=== PATIENT | female | born 1940 | race Caucasian/White ===

== ENCOUNTER → 2024-09-02 11:33 | Outpatient (REF) | payer MEDICARE, OTHER, SELFPAY ==
[2024-09-02 15:15] LABS: Hematocrit 37.2 % (37.0-47.0); Hemoglobin 11.9 g/dL (12.0-16.0); Mean Corpuscular Hgb 31.4 pg (27.0-31.0); Mean Corpuscular Volume 98.2 fL (81.0-99.0); Mean Platelet Volume 9.5 fL (7.4-10.4); Platelet Count 183 10^3/uL (130-400); Red Blood Cell Count 3.79 10^6/uL (4.20-5.40); Red Cell Dist. Width 14.2 % (11.5-14.5); White Blood Cell Count 6.1 10^3/uL (4.8-10.8)
== END ==
LOC: OLABN 11:33
PROVIDERS: ATTENDING PHYSICIAN Student in an Organized Health Care Education/Training Program
DX: I10 Essential (primary) hypertension (principal)
CPT/HCPCS: 36415; 85027

== ENCOUNTER → 2025-02-24 09:50 | Outpatient (REF) | payer MEDICARE, OTHER, SELFPAY ==
[2025-02-24 10:36] LABS: Hematocrit 39.5 % (37.0-47.0); Hemoglobin 12.9 g/dL (12.0-16.0); Mean Corp Hgb Conc. 32.7 g/dL (33.0-37.0); Mean Corpuscular Hgb 30.4 pg (27.0-31.0); Mean Corpuscular Volume 93.2 fL (81.0-99.0); Mean Platelet Volume 9.8 fL (7.4-10.4); Platelet Count 195 10^3/uL (130-400); Red Blood Cell Count 4.24 10^6/uL (4.20-5.40); Red Cell Dist. Width 13.8 % (11.5-14.5); White Blood Cell Count 5.2 10^3/uL (4.8-10.8)
== END ==
LOC: OLABN 09:50
PROVIDERS: ATTENDING PHYSICIAN Student in an Organized Health Care Education/Training Program
DX: I10 Essential (primary) hypertension (principal)
CPT/HCPCS: 36415; 85027

== ENCOUNTER 2025-03-07 21:41 | Inpatient (IN) | payer MEDICARE, OTHER, SELFPAY ==
[2025-03-07 19:08] VITALS: BP 109/61
--- NOTE | 2025-03-07 19:10 | ED.GENMED ---
History of Present Illness
General
Chief Complaint: Fall
Source: patient
Exam Limitations: none
Time Seen by Provider: 03/07/25 19:04
Nursing documentation reviewed up to this point in time: agreed with
History of Present Illness
History of Present Illness:
85-year-old female with a past medical history of dementia, hyperlipidemia, atrial fibrillation who presents to the emergency department from [facility] for evaluation of tachycardia, abnormal labs, vomiting. Patient is a very limited
historian due to her dementia and history is obtained from care home records as well as discussions with nursing of staff and EMS crew. Apparently patient was in her normal state of health this morning when she had an unwitnessed fall from
ground-level at about 7:10 AM. No apparent injuries send did not complain of any injuries after the fall but she was noted to be tachycardic by staff. No fever noted at this time. Throughout the day they monitored heart rate and her heart rate
was between 100 and 120. Staff noted that she was more lethargic than usual. She was sent for lab work due to her fall, elevated heart rate and lethargy. In the evening around 5:30 PM she had an episode of nonbloody emesis. She was noted to be
borderline febrile with a temp of 99.5 �F. She remained tachycardic and her stat lab work returned and was noted for a WBC of 20.1. She was referred to the ER to be assessed. She is on Eliquis per medication list.
Past History
Past History
ED Past Medical History: Other (Slight Dementia)
ED Past Surgical History: None
Social History
Tobacco: Non-smoker
Alcohol: None
Personal:
Living: care home
Review of Systems
Review of Systems
Unable to obtain full review of systems at this time due to: dementia
All Other Systems: Not applicable
Phy Exam
Physical Exam
Physical Exam:
General: Awake, alert, oriented x 1, nontoxic-appearing
Head: Normocephalic, atraumatic
Eyes: Conjunctiva normal, sclera anicteric
Throat: Airway intact, handling secretions, edentulous
Neck: Trachea midline, no cervical spine tenderness
Back: No signs of trauma to the back or flank and no tenderness in the thoracic or lumbar spine
Lungs: Clear to auscultation bilaterally, no wheezing, rales, rhonchi
Heart: Tachycardia with irregular rhythm, no murmurs, gallops, or rubs; no chest wall tenderness
Abd: Soft, non distended, nontender
Neuro: Grossly intact
Skin: no rash, no lacerations or abrasions
Extremities: Bilateral lower extremity edema; extremities are atraumatic and nontender, good pulses throughout
Scores
Heart Failure Risk
Heart Failure Risk Score: Not Applicable
Heart Score for Chest Pain Patients
STEMI patient?: Not applicable
Withdrawal Assessment of Alcohol
Withdrawal Assessment Completed?: Not applicable
Course
Orders/Labs/Results
Orders:
Orders
03/07/25 19:10
Electrocardiogram (*1) Urgent
Reason for Study: Tachycardia
EKG- Treatment ONCE
03/07/25 19:17
CT Head W/o Iv Contrast Urgent
Comment:
Reason For Exam: fall on ac--vomiting
03/07/25 19:25
COVID-19 Antigen Urgent
Source: Nasal Swab
Complete Blood Count/With Diff Urgent
Urinalysis Reflex To Culture Urgent
Date Specimen was Collected: 03/07/25
Time Specimen was Collected: 19:15
Urine Microscopic Reflex Cult Urgent
Influenza A+B Rapid Molecular Urgent
ROCIO Source: Nasal Swab
Specimen Description:
03/07/25 19:26
Comprehensive Metabolic Panel Urgent
Lipase Urgent
Troponin I Urgent
03/07/25 20:04
Electrocardiogram (*1) Urgent
Reason for Study: Fatigue / Weakness
EKG- Treatment ONCE
03/07/25 20:30
CR Chest Portable - 1 View Urgent
Comment:
Reason For Exam: tachypnea
Reason Study Needs to be Portable: Unable to Transport
Abnormal Lab Results
03/07/25 03/07/25
19:25 19:26
WBC 20.0 H 10^3/uL
(4.8-10.8)
Abs Immat Gran (auto) 0.1 H 10^3/uL
(0-0.05)
Absolute Neuts (auto) 17.7 H 10^3/uL
(1.4-6.5)
Immature Gran % 0.7 H %
(0-0.5)
Neutrophils % 88.3 H %
(42.2-75.2)
Lymphocytes % 6.8 L %
(20.5-51.1)
Sodium 134 L mmol/L
(135-145)
BUN 23 H mg/dl
(7-17)
Glucose 132 H mg/dl
(70-99)
Albumin 3.1 L g/dl
(3.5-5.0)
Urine Albumin (Reflex) 1+ A
(Neg - Trace)
03/07/25 19:25
03/07/25 19:26
Vital Signs
Initial and Last Documented VS:
Initial Vital Signs
Pulse Resp BP
115 16 109/61
03/07/25 19:08 03/07/25 19:08 03/07/25 19:08
Last Documented Vital Signs
Temp Pulse Resp BP Pulse Ox
37.2 C 114 28 109/61 95
03/07/25 19:12 03/07/25 19:30 03/07/25 19:30 03/07/25 19:12 03/07/25 19:30
MDM/Problems Addressed
Differential Diagnosis Includes:
Differential diagnosis for lethargy and tachycardia wide�UTI, viral syndrome, dehydration/electrolyte derangement, renal dysfunction, etc
MDM/Problems Addressed:
85-year-old female presents for evaluation of tachycardia, lethargy and vomiting. She had a minor fall this morning no apparent injuries but throughout the day has been lethargic, tachycardic, borderline fever and tonight had an episode of vomiting
which finally prompted ER referral. She did have lab work sent on an outpatient basis today which showed that she has a WBC of 20.1. Vital signs here were significant for tachycardia and; no fever. Physical exam as above�no apparent traumatic
injuries noted. Given her fall and vomiting on anticoagulation she should have CT head to rule out traumatic head injury although no external signs of trauma to the head. Will place an IV send labs including a CBC and a CMP, lipase. Check
cardiogram and troponin. Will check viral swabs. Will monitor very closely reassess after the above.
Labs reviewed: CBC does show leukocytosis to 20 and with her tachypnea and tachycardia added lactate and blood cultures. CMP no clinically significant abnormalities. Troponin negative. Urinalysis negative for infection. COVID and flu negative.
CT head negative for any acute pathology. EKG showed sinus tachycardia. Chest x-ray reviewed by me shows right upper lobe pneumonia. Will plan to cover with antibiotics, continue fluids, will admit for continued management. Discussed with
hospitalist.
Chronic conditions affecting care:
Dementia
*Pulse Oximetry
Patient hypoxic: no (97%)
*Critical Care Note
Total Time (30-74mins, 75-104mins- exclusive of procedures): Not Applicable
Data Reviewed
Review of Other/Old Records Reveals: Labs and Records
Source: patient, records, ambulance crew, care home and care home records
Patient Management
Discussion with other providers: Hospitalist (Discussed with hospitalist) and jail staff (Discussed directly with care home staff)
Escalation/DeEscalation of care consider admission/obs:
Admission indicated
ED Attending Note
-
Portions of this chart may have been created with voice recognition software.� Occasional wrong word or��sound alike� substitutions may have occurred due to the inherent limitations of voice recognition software.
Discharge Plan
Departure
Patient Disposition: Admit
Date of Disposition: 03/07/25
Time of Disposition: 21:01
Admit to doctor: Venancio
Presentation/result/management discussed w/ accepting MD/DO: Hospitalist
Discharge Problem:
Sepsis, Pneumonia
Prescriptions:
No Action
latanoprost [Xalatan] 0.005 % Drops
1 drp BOTH EYES HS
acetaminophen 325 mg Tablet
650 mg PO Q4H PRN (Reason: pain, fever >100.4 )
sucralfate 1 gram Tablet
1 g PO ACHS
ondansetron HCl [Zofran] 4 mg Tablet
4 mg PO Q6H PRN (Reason: nausea/vomiting)
bisacodyl 10 mg Suppository
10 mg AR Q72H PRN (Reason: 3 days when no BM and MOM and/or lactulose ineffec)
pantoprazole [Protonix] 40 mg Tablet,Delayed Release (Dr/Ec)
40 mg PO BID
dorzolamide-timolol 22.3-6.8 mg/mL Drops
1 drp BOTH EYES BID
metoprolol succinate [Toprol XL] 25 mg Tablet Extended Release 24 Hr
25 mg PO DAILY
polyethylene glycol 3350 [Miralax] 17 gram/dose Powder
17 g PO DAILY
fluticasone propionate [Flonase] 50 mcg/actuation [place],Suspension
1 spray INTRANASAL BID
Eliquis 2.5 mg Tablet
2.5 mg PO Q12H
magnesium hydroxide [Milk of Magnesia] 400 mg/5 mL Suspension
30 ml PO HS PRN (Reason: constipation)
cyanocobalamin (vitamin B-12) 1,000 mcg/mL Solution
1,000 mcg IM QMONTH
Rx Instructions:
04/06/2023, patient takes of the month
alum-mag hydroxide-simeth [Mylanta] 200-200-20 mg/5 mL Suspension
30 ml PO Q4H PRN (Reason: colitis)
diclofenac sodium [Voltaren] 1 % Gel
4 g TOPICAL DAILY
potassium chloride [Klor-Con M20] 20 mEq tablet,ER particles/crystals
20 meq PO DAILY 7 Days Qty: 7 0RF
Referrals:
UNKNOWN - PT DOES,NOT KNOW [Family Provider]
Interventions
Interventions:
*Risk Screen - Suicide Last Done: 03/07/25 19:12
*General Assessment Last Done: 03/07/25 19:12
*Neglect/Abuse Screening Last Done: 03/07/25 19:12
*ED- Fall Risk Assessment Last Done: 03/07/25 19:12
*ED COVID-19 Vaccine History Last Done: 03/07/25 19:12
ED-Musculoskeletal Assessment Last Done: 03/07/25 19:25
ED- Neurological Assessment Last Done: 03/07/25 19:25
ED-Skin Assessment Last Done: 03/07/25 19:25
Discharge Date and Time
Print Language: KENYAN
[2025-03-07 19:12] VITALS: BP 109/61
[2025-03-07 19:25] VITALS: BMI 22.7
[2025-03-07 19:40] LABS: Hematocrit 39.2 % (37.0-47.0); Hemoglobin 13.4 g/dL (12.0-16.0); Mean Corp Hgb Conc. 34.2 g/dL (33.0-37.0); Mean Corpuscular Volume 90.3 fL (81.0-99.0); Nucleated Red Blood Cells % 0 %; Platelet Count 157 10^3/uL (130-400); Red Cell Dist. Width 13.9 % (11.5-14.5); Urine Character Clear (Clear)
[2025-03-07 19:50] LABS: Urine Red Blood Cell None Seen /HPF (0-2)
[2025-03-07 19:56] LABS: COVID-19 Antigen Negative (Negative)
[2025-03-07 19:59] LABS: AST (SGOT) 28 U/L (14-36); Albumin 3.1 g/dl (3.5-5.0); Alkaline Phosphatase 65 U/L (38-126); Blood Urea Nitrogen 23 mg/dl (7-17); Calcium 8.7 mg/dl (8.4-10.2); Carbon Dioxide 25 mmol/L (22-30); Chloride 104 mmol/L (98-107); Estimated Creatinine Clearance 57 ml/min; Glucose 132 mg/dl (70-99); Lipase 63 U/L (23-300); Potassium 4.3 mmol/L (3.5-5.1); Sodium 134 mmol/L (135-145); Total Protein 6.3 g/dl (6.3-8.2); eGFR > 60.00
[2025-03-07 20:00] VITALS: BP 109/59
[2025-03-07 20:13] LABS: Troponin I 0.018 ng/ml
[2025-03-07 20:27] LABS: ALT (SGPT) < 30 U/L (0-35)
[2025-03-07 21:00] VITALS: BP 98/55
--- NOTE | 2025-03-07 21:08 | HPS.HSE ---
Addendum entered and electronically signed by Allen Gonzalez MD 03/08/25 12:24:
CXR final report
- There are opacities projecting over the right upper and lower lungs which likely represent multifocal pneumonia.
- There is a 7 mm nodular opacity projecting over the left upper lung, possibly a calcified granuloma. Recommend follow-up to ensure resolution.
Original Note:
Family Physician
-
Family Physician: NOT KNOW UNKNOWN - PT DOES
Chief Complaint
-
Fall and lethargic, low grade fever,
History of Present Illness
85[facility] H[facility] MCI vs mild dementia , hyperlipidemia, atrial fibrillation , chronic eliquis and BB sen at ER :
- very limited historian due to her dementia and history is obtained from care home records a
- Apparently patient was in her normal state of health
- this morning when she had an unwitnessed fall from ground-level at about 7:10 AM. No apparent injuries
- was noted to be tachycardic by staff.
- Throughout the day they monitored heart rate and her heart rate was between 100 and 120.
- Staff noted that she was more lethargic than usual.
- In the evening , she had an episode of nonbloody emesis.
- noted borderline febrile with a temp of 99.5 �F and remained tachycardic
- lab work returned and was noted for a WBC of 20.1.
She was referred to the ER to be assessed. She is on Eliquis per medication list.
Medical History
Past Medical History
Past Medical History: Reports None, Arrhythmia (Atria fibrillation on chr Eliquis ), Dementia (mild vs MCI ), GERD and HTN
Past Surgical History: Reports None
Social History
Tobacco: Non-smoker
Alcohol: None
Living: Long Term ([facility] )
Family History
Family History: Not pertinent
Allergies / Home Medications
Allergies reflects when Allergies were last updated in [facility].
Home Medications with original date entered in [facility]
Allergy/Medication List:
Allergies
Allergy/AdvReac Type Severity Reaction Status Date / Time
No Known Allergies Allergy Verified 03/07/25 19:11
Home Medications
acetaminophen 325 mg tablet 650 mg PO Q4H PRN pain, fever >100.4 10/03/22
apixaban 2.5 mg tablet (Eliquis) 2.5 mg PO Q12H 10/03/22
bisacodyl 10 mg rectal suppository [address] Q72H PRN 3 days when no BM and MOM and/or lactulose ineffec 10/03/22
dorzolamide 22.3 mg-timolol 6.8 mg/mL eye drops 1 drp BOTH EYES BID 10/03/22
fluticasone propionate 50 mcg/actuation nasal spray,suspension 1 spray intranasal BID 10/03/22
latanoprost 0.005 % eye drops (Xalatan) 1 drp BOTH EYES HS 10/03/22
metoprolol succinate 25 mg tablet,extended release 24 hr (Toprol XL) 25 mg PO DAILY 10/03/22
ondansetron HCl 4 mg tablet 4 mg PO Q6H PRN nausea/vomiting 10/03/22
pantoprazole 40 mg tablet,delayed release (Protonix) 40 mg PO BID 10/03/22
polyethylene glycol 3350 17 gram/dose oral powder (Miralax) 17 g PO DAILY 10/03/22
sucralfate 1 gram tablet 1 g PO ACHS 10/03/22
aluminum-mag hydroxide-simethicone 200 mg-200 mg-20 mg/5 mL oral susp 30 ml PO Q4H PRN colitis 04/06/23
cyanocobalamin (vitamin B-12) 1,000 mcg/mL injection solution 1,000 mcg IM QMONTH 04/06/23
diclofenac sodium 1 % topical gel 4 g topical DAILY apply to B/L knee 04/06/23
magnesium hydroxide 400 mg/5 mL oral suspension (Milk of Magnesia) 30 ml PO HS PRN constipation 04/06/23
potassium chloride 20 mEq tablet,extended release(part/cryst) (Klor-Con M) 20 meq PO DAILY 7 days #7 tabs 04/06/23
Review of Systems
-
Constitutional: Reports No Symptoms
EENT: Reports No Symptoms
Cardiac: Reports No Symptoms
Abdomen/GI: Reports No Symptoms
: Reports No Symptoms
Musculoskeletal: Reports No Symptoms
Skin: Reports No Symptoms
Neurological: Reports No Symptoms
Endocrine: Reports No Symptoms
Hematologic/Lymphatic: Reports No Symptoms
Psych: Reports No Symptoms
Physical Exam
Vital Signs
Vital Signs
Temp Pulse Resp BP Pulse Ox
99.0 F 114 28 109/61 95
03/07/25 19:12 03/07/25 19:30 03/07/25 19:30 03/07/25 19:12 03/07/25 19:30
Physical Exam
General: No Apparent Distress and Conversant (just interactive, slightly lethargic )
HEENT: NormoCephalic, Moist mucous membranes and Atraumatic
Respiratory: Clear
Cardiac: S1/S2, Irregular Rhythm and Tachycardia; No Murmur or Rub
GI: Soft, Non Tender, Non Distended and Normal Bowel Sounds; No Organomegaly
Rectal: Deferred by Provider
Musculoskeletal: No Clubbing, No Edema and Other (Bilateral lower extremity edema; extremities are atraumatic and nontender,)
Skin: No Rash
Neuro: Nonfocal/grossly intact
Psych: Calm, Confused and Apparent Dementia
Laboratory Results
-
03/07/25 19:25
03/07/25 19:26
Laboratory Results
Total Bilirubin 1.0 mg/dl (0.2-1.3) 03/07/25 19:26
AST 28 U/L (14-36) 03/07/25 19:26
ALT < 30 U/L (0-35) 03/07/25 19:26
Alkaline Phosphatase 65 U/L (38-126) 03/07/25 19:26
Troponin I 0.018 ng/ml 03/07/25 19:26
Lipase 63 U/L (23-300) 03/07/25 19:26
Data Reviewed
-
Diagnostic Radiology: Report Reviewed by me
Medical Tests (Nuc Med, Echo, EKG etc): Report Reviewed by me
Lab Data: Labs Reviewed by me
Impression/Plan
-
VS
03/07/25
19:12
Temp 99.0 F
Pulse 110
Resp Rate 28
Blood pressure 109/61
SaO2 92
Oxygen Mode of Delivery Room air
admission labs
03/07/25 03/07/25
19:26
WBC 20.0 H
Immature Gran % 0.7 H
Neutrophils % 88.3 H
Sodium 134 L
BUN 23 H
Creatinine 0.6
eGFR > 60.00
Glucose 132 H
Troponin I 0.018
Leukocyte Esterase Rfl Negative
Urine WBC (Reflex) 3-5
SARS-CoV-2 Antigen Negative
Pending LA
BCX sent
CXR: pending final report , prelim review right upper lobe pneumonia
HCT:
No evidence of acute intracranial abnormality
EKG
NO PRIOR hospitalist admission:
ASSESSMENT & PLAN
Pending Rx reconciliation
Sepsis 2/2 PNA
Prelim CXR read by ER suggest RUL PNA
- s/p septic NS bolus 1 and cont 100/H
- BCx sent
- Agree with empiric IV CFTX and AZitrhomycin
- f/u LA
- Trend T and WCC
- PRN O2 to keep Pox > 94
Associated hypoactive lethargic TME due to sepsis
Associated Fall without serious injuries
NEG HCT
HX Cognitive impairment ( Mild to moderate Dementia > MCI )
- Fall precaution
- avoid sedatives and narcotics
In A Fib with fast HR due to sepsis
- cont. Eliquis
- cont Metoprol XL
- Permissive VR during sepsis
- Treat PNA and f/u HR
- desk monitor
GERD
- on PPI and sucralfate
DVT Px: on DOCUMENT PREPARER MICROFILMING Eliquis
Full code
IP TLM
[2025-03-07 22:00] VITALS: BP 98/54
[2025-03-07] MEDS: NSS 1000 IV (22:17)
[2025-03-07] MEDS: ROCEPHIN 1000 MG IV (22:19)
[2025-03-07] MEDS: ZITHROMAX INFUSION 250 IV (22:25)
[2025-03-08] VITALS (8 sets, daily range): BP systolic 85–137; BP diastolic 39–84; PULSE 84; O2SAT 93; BMI 22.4
[2025-03-08] MEDS: ELIQUIS 2.5 MG PO ×3 (00:55→19:41)
[2025-03-08] MEDS: XALATAN OPHTHALMIC SOLUTION 1 DROP BOTH EYES ×2 (00:55→21:51)
[2025-03-08] MEDS: CARAFATE 1 GRAM PO ×5 (00:55→21:47)
[2025-03-08] MEDS: LR 1000 IV ×2 (00:55→11:42)
--- NOTE | 2025-03-08 07:16 | W.PN.HOSP.TC ---
Addendum entered and electronically signed by Norma Morales MD 03/08/25 14:30:
I saw and evaluated the patient independently. I reviewed the resident�s note and agree with findings and plan as documented by Dr. Gu.
GENERAL: well developed, well nourished, female in no apparent distress
HEENT: NC/AT
HEART: regular rate and rhythm, +S1, +S2
LUNGS : rhonchi anteriorly right side and posterior right base
ABDOM: soft, nontender, nondistended, + bowel sounds
EXT: no cyanosis, clubbing, or edema
NEUROLOGIC: apparent dementia
Sepsis (POA) likely secondary to pneumonia--Continue IV ceftriaxone and PO azithromycin---Continue IV Fluids (increase rate) as BP soft--flu/covid neg--await cultures
Lung Nodule--Patient should follow up with a chief librarian extension department in the outpatient setting for evaluation
Status post fall--CT Head without contrast negative for acute pathology--Ordered PT/OT
Dementia--Continue to follow up with PCP
paroxysmal Atrial Fibrillation--Continue Eliquis and metoprolol
Gastroesophageal Reflux Disease--Continue Pantoprazole
Constipation-Continue bowel regimen
DVT proph
CODE STATUS--full code
Original Note:
Today's Communication/Plan
-
Ordered PT and OT
Assessment / Plan
Assessment / Plan
Sepsis likely secondary to pneumonia
-Continue IV ceftriaxone and PO azithromycin
-Continue IV Fluids
-Pending blood cultures
-Added Tylenol PRN for pain or fevers
Lung Nodule
-Patient should follow up with a chief librarian extension department in the outpatient setting for evaluation
Status post fall
-CT Head without contrast negative for acute pathology
-Ordered PT/OT
Dementia
-Continue to follow up with PCP
Atrial Fibrillation
-Continue Eliquis and metoprolol
Gastroesophageal Reflux Disease
-Continue home meds (Mylanta, Pantoprazole)
Constipation
-Continue home meds (Milk of Magnesia, Miralax, Bisacodyl)
Anticipated Discharge: 24 - 48 hours
Subjective/Interval History
-
Date of Service: March 08, 2025
Patient was doing well today. She was eating breakfast and had no complaints. She states she was doing very well, and was interested in going home. Her daughter was not present in the room during this time.
Objective Data
-
Labs:
Laboratory Results
03/07/25 03/07/25 03/08/25
19:25 19:26 06:00
WBC 20.0 H Pending
Hgb 13.4 Pending
Hct 39.2 Pending
Plt Count 157 Pending
Sodium 134 L Pending
Potassium 4.3 Pending
Chloride 104 Pending
Carbon Dioxide 25 Pending
BUN 23 H Pending
Creatinine 0.6 Pending
Glucose 132 H Pending
Calcium 8.7 Pending
Total Bilirubin 1.0 Pending
AST 28 Pending
ALT < 30 Pending
Alkaline Phosphatase 65 Pending
Vital Signs:
Vital Signs
Temp Pulse Resp BP Pulse Ox
97.9 F 80 12 117/84 91
03/08/25 03:50 03/08/25 03:50 03/08/25 03:50 03/08/25 03:50 03/08/25 03:50
I&O
03/07/25 03/08/25 03/09/25
06:59 06:59 06:59
Intake Total 600 / 600
Balance 600 / 600
Review of Systems
-
Unable to obtain full review of systems at this time due to: Dementia
History Source: Patient
Constitutional: Denies Fever, Fatigue, Sleep Disturbance, Chills or Weakness
EENT: Reports Dry Eyes; Denies Sore Throat or Eye Pain
Respiratory: Denies Cough, Trouble Breathing or Wheezing
Cardiac: Denies Chest Pain or Palpitations
Abdomen/GI: Denies Abdominal Pain, Nausea, Vomiting, Diarrhea or Constipated
Genitourinary: Denies Dysuria
Musculoskeletal: Denies Joint Pain or Muscle Pain
Skin: Reports No Symptoms
Neuro: Denies Dizzy or Headache
Physical Exam
-
General: Well Developed, Well Nourished, No Apparent Distress and Comfortable
HEENT: Normocephalic and Atraumatic
Respiratory: Rhonchi (Right upper lobe )
Cardiac: Regular Rhythm and S1/S2
Musculoskeletal: No Edema
Skin: Warm, Dry and Other (Calluses on anterior joints of several toes with twisting of the toes aside from the big toe.)
Neuro: Awake and Alert
Psych: Calm
[2025-03-08] MEDS: PROTONIX 40 MG PO ×2 (07:35→19:41)
[2025-03-08] MEDS: ZITHROMAX 500 MG PO (07:35)
[2025-03-08 08:30] LABS: Hematocrit 36.8 % (37.0-47.0); Hemoglobin 12.4 g/dL (12.0-16.0); Mean Corp Hgb Conc. 33.7 g/dL (33.0-37.0); Mean Corpuscular Volume 90.9 fL (81.0-99.0); Nucleated Red Blood Cells % 0 %; Platelet Count 142 10^3/uL (130-400); Red Cell Dist. Width 13.7 % (11.5-14.5)
[2025-03-08 09:05] LABS: ALT (SGPT) 11 U/L (0-35); AST (SGOT) 22 U/L (14-36); Albumin 2.7 g/dl (3.5-5.0); Alkaline Phosphatase 74 U/L (38-126); Blood Urea Nitrogen 19 mg/dl (7-17); Calcium 8.3 mg/dl (8.4-10.2); Carbon Dioxide 25 mmol/L (22-30); Chloride 108 mmol/L (98-107); Estimated Creatinine Clearance 57 ml/min; Glucose 109 mg/dl (70-99); Potassium 3.6 mmol/L (3.5-5.1); Sodium 135 mmol/L (135-145); Total Protein 5.7 g/dl (6.3-8.2); eGFR > 60.00
[2025-03-08] MEDS: TOPROL XL PO (10:45)
[2025-03-08 10:55] LABS: Urine Character Clear (Clear)
[2025-03-08 11:39] LABS: Urine Red Blood Cell 0-2 /HPF (0-2)
[2025-03-08] MEDS: TYLENOL 650 MG PO (15:08)
--- NOTE | 2025-03-08 16:12 | CM ---
body care manager reviewed patient's chart and met with patient and reached out to nursing cable supervisor, Betzy at [facility], per nursing cable supervisor, patient is independent with toileting, and able to transfer from w/c to bed at [facility]
residential.
Plan; Patient to return to [facility] where patient is a senior care resident
[facility]
Report [phone]
[2025-03-08] MEDS: KEFLEX 500 MG PO (21:47)
[2025-03-09 06:00] VITALS: BMI 22.3
[2025-03-09 06:15] LABS: Hematocrit 39.3 % (37.0-47.0); Hemoglobin 13.4 g/dL (12.0-16.0); Mean Corp Hgb Conc. 34.1 g/dL (33.0-37.0); Mean Corpuscular Volume 90.1 fL (81.0-99.0); Platelet Count 148 10^3/uL (130-400); Red Cell Dist. Width 13.7 % (11.5-14.5)
[2025-03-09 06:35] LABS: Blood Urea Nitrogen 14 mg/dl (7-17); Calcium 8.6 mg/dl (8.4-10.2); Carbon Dioxide 23 mmol/L (22-30); Chloride 108 mmol/L (98-107); Estimated Creatinine Clearance 57 ml/min; Glucose 122 mg/dl (70-99); Potassium 3.7 mmol/L (3.5-5.1); Sodium 136 mmol/L (135-145); eGFR > 60.00
[2025-03-09 07:00] VITALS: BP 113/67
[2025-03-09] MEDS: KEFLEX 500 MG PO ×3 (07:36→22:03)
[2025-03-09] MEDS: PROTONIX 40 MG PO ×2 (07:36→20:02)
[2025-03-09] MEDS: ZITHROMAX 500 MG PO (07:37)
[2025-03-09] MEDS: ELIQUIS 2.5 MG PO ×2 (07:41→20:02)
[2025-03-09] MEDS: TOPROL XL 25 MG PO (07:42)
[2025-03-09] MEDS: CARAFATE 1 GRAM PO ×4 (07:42→22:02)
--- NOTE | 2025-03-09 08:07 | W.PN.HOSP.TC ---
Addendum entered and electronically signed by Norma Morales MD 03/09/25 14:16:
I saw and evaluated the patient independently. I reviewed the resident�s note and agree with findings and plan as documented by Dr. Gu.
GENERAL: well developed, well nourished, female in no apparent distress
HEENT: NC/AT
HEART: regular rate and rhythm, +S1, +S2
LUNGS : rhonchi anteriorly right side and posterior right base
ABDOM: soft, nontender, nondistended, + bowel sounds
EXT: no cyanosis, clubbing, or edema
NEUROLOGIC: apparent dementia
Sepsis (POA) likely secondary to pneumonia--pt pulled out IV so transitioned to keflex and IVF stopped---flu/covid neg--cultures neg
Lung Nodule--Patient should follow up with a freight shipping agent in the outpatient setting for evaluation
Status post fall--CT Head without contrast negative for acute pathology--Ordered PT/OT
Dementia--Continue to follow up with PCP
paroxysmal Atrial Fibrillation--Continue Eliquis and metoprolol
Gastroesophageal Reflux Disease--Continue Pantoprazole
Constipation-Continue bowel regimen
DVT proph
CODE STATUS--full code
anticipate d/c back to [place] tomorrow
Original Note:
Today's Communication/Plan
-
Patient doing well today, plan to discharge tomorrow.
Assessment / Plan
Assessment / Plan
Assessment
This is an 85 y/o female with a pmhx of dementia, hyperlipidemia, paroxysmal atrial fibrillation on Eliquis who presented to the ED from [facility] on 03/07/2025 with tachycardia and vomiting who was found to be septic likely secondary to
pneumonia.
Plan
Sepsis likely secondary to pneumonia
-WBC now 15.3, from 20.1 on admission
-Patient was pulling out her IVs yesterday evening. Transitioned her to oral medications at that time.
-Continue Keflex 500mg TID, Tylenol 650mg PRN for mild pain or fevers
Vomiting
-Continue Zofran PRN for nausea and vomiting
Lung Nodule
-If desired, Patient should follow up with a freight shipping agent in the outpatient setting for evaluation (She is 85)
Status post fall
-CT Head without contrast negative for acute pathology
-PT/OT
Dementia
-Continue to follow up with PCP
-Patients mediations require reconciliation with what she takes at home. Patient unable to clarify herself due to her dementia
Atrial Fibrillation
-Continue Eliquis and metoprolol
Gastroesophageal Reflux Disease
-Continue home meds (Mylanta, Pantoprazole)
Constipation
-Continue home meds (Milk of Magnesia, Miralax, Bisacodyl)
Anticipated Discharge: 24 - 48 hours
Subjective/Interval History
-
Date of Service: March 09, 2025
Patient was sleeping today when I arrived but awoke easily when I called her name. She denies any shortness of breath, chest pain or coughing, but notably was coughing while I was in the room with her. She denied any concerns or complaints aside
from being tired and wanted to sleep more. After I left the room she did have an episode of vomiting, which she stated is normal for her. She did not vomit any of her medications.
Objective Data
-
Labs:
Laboratory Results
03/09/25
05:50
WBC 15.3 H
Hgb 13.4
Hct 39.3
Plt Count 148
Sodium 136
Potassium 3.7
Chloride 108 H
Carbon Dioxide 23
BUN 14
Creatinine 0.6
Glucose 122 H
Calcium 8.6
Vital Signs:
Vital Signs
Temp Pulse Resp BP Pulse Ox
99.6 F 115 18 113/67 93
03/08/25 23:00 03/09/25 07:42 03/08/25 23:00 03/09/25 07:42 03/08/25 23:00
I&O
03/08/25 03/09/25 03/10/25
06:59 06:59 06:59
Intake Total 600 / 600
Output Total 250 / 250
Balance 600 / 600 -250 / -250
Review of Systems
-
Unable to obtain full review of systems at this time due to: Dementia
History Source: Patient
Constitutional: Reports Fatigue; Denies Fever or Chills
Respiratory: Denies Cough (See subjective history), Trouble Breathing or Wheezing
Cardiac: Denies Chest Pain
Abdomen/GI: Reports Vomiting; Denies Abdominal Pain or Nausea
Musculoskeletal: Denies Muscle Pain
Physical Exam
-
General: Well Developed, Well Nourished, No Apparent Distress and Comfortable
HEENT: Normocephalic and Atraumatic
Respiratory: Clear to Auscultation
Cardiac: Regular Rhythm and S1/S2
Skin: Warm and Dry
Neuro: Awake (Initially sleeping) and Alert
Psych: Calm
[2025-03-09] MEDS: ZOFRAN ODT (ORALLY DISINTEGRATING) 4 MG PO (12:01)
--- NOTE | 2025-03-09 13:58 | W.PN.UPDATE ---
Update Note
Progress Note Update
With permission from the patient, I contacted the patient's daughter, Jodi. I updated her on how her mother has been doing, including her transition yesterday from IV to PO medications after she tried to remove her IVs, and the episode of
vomiting that she had this morning. She had questions about the plan to discharge her mother tomorrow, and transportation of her mother back to [facility] where she lives. We discussed her case for approximately 7 minutes in total.
[2025-03-09 15:00] VITALS: BP 108/67
[2025-03-09 16:08] VITALS: BP 108/67; PULSE 132; O2SAT 94
[2025-03-09] MEDS: XALATAN OPHTHALMIC SOLUTION 1 DROP BOTH EYES (22:03)
[2025-03-09] MEDS: TYLENOL 650 MG PO (22:06)
[2025-03-09 23:24] VITALS: BP 101/51
[2025-03-10 05:15] VITALS: BMI 22.5
[2025-03-10 06:48] LABS: Hematocrit 35.9 % (37.0-47.0); Hemoglobin 12.0 g/dL (12.0-16.0); Mean Corp Hgb Conc. 33.4 g/dL (33.0-37.0); Mean Corpuscular Volume 91.1 fL (81.0-99.0); Platelet Count 143 10^3/uL (130-400); Red Cell Dist. Width 13.7 % (11.5-14.5)
[2025-03-10 07:04] VITALS: BP 98/62
--- NOTE | 2025-03-10 07:06 | W.PN.HOSP.TC ---
Today's Communication/Plan
-
Discharge today
Assessment / Plan
Assessment / Plan
Assessment
This is an 85 y/o female with a pmhx of dementia, hyperlipidemia, paroxysmal atrial fibrillation on Eliquis who presented to the ED from [facility] on 03/07/2025 with tachycardia and vomiting who was found to be septic likely secondary to
pneumonia.
Plan
Sepsis likely secondary to pneumonia
-WBC now normal at 83, decreased from 15.3 yesterday and 20.1 on admission
-Blood cultures negative for growth
-Continue Keflex 500mg TID, Tylenol 650mg PRN for mild pain or fevers
Vomiting-Resolved
-Patient has not had any episodes of vomiting since yesterday
-Continue Zofran PRN for nausea and vomiting
Constipation
-Ordered Miralax and Senna today
Lung Nodule
-If desired, Patient should follow up with a gas booster engineer in the outpatient setting for evaluation (She is 85)
Status post fall
-CT Head without contrast negative for acute pathology
-PT/OT
Dementia
-Continue to follow up with PCP
-Patients mediations require reconciliation with what she takes at home. Patient unable to clarify herself due to her dementia
Atrial Fibrillation
-Continue Eliquis and metoprolol
Gastroesophageal Reflux Disease
-Continue home meds (Mylanta, Pantoprazole)
Constipation
-Pt was reportedly attempting digital disimpaction on herself today
-Ordered one time senna and Miralax dose
-Continue home meds (Milk of Magnesia, Miralax, Bisacodyl)
Anticipated Discharge: Within 24 hours
Subjective/Interval History
-
Date of Service: March 10, 2025
Patient was sleeping when I arrived, but awoke easily to the sound of my voice. She said she was doing well and denied any shortness of breath, chest pain, coughing, diarrhea, constipation, nausea or vomiting. She did not remember vomiting
yesterday, but did state that it is normal for her to vomit. Per her nurse, she was attempting a digital disimpaction despite her earlier denial of constipation.
Objective Data
-
Labs:
Laboratory Results
03/10/25
06:21
WBC 8.3
Hgb 12.0
Hct 35.9 L
Plt Count 143
Sodium Pending
Potassium Pending
Chloride Pending
Carbon Dioxide Pending
BUN Pending
Creatinine Pending
Glucose Pending
Calcium Pending
Vital Signs:
Vital Signs
Temp Pulse Resp BP Pulse Ox
99 F 111 18 101/51 93
03/09/25 23:24 03/09/25 23:24 03/09/25 23:24 03/09/25 23:24 03/09/25 23:24
I&O
03/09/25 03/10/25 03/11/25
06:59 06:59 06:59
Intake Total 480 / 480
Output Total 250 / 250 30 / 30
Balance -250 / -250 450 / 450
Review of Systems
-
Unable to obtain full review of systems at this time due to: Dementia
History Source: Patient
Respiratory: Denies Cough or Trouble Breathing
Cardiac: Denies Chest Pain
Abdomen/GI: Denies Abdominal Pain, Nausea, Vomiting, Diarrhea or Constipated
Musculoskeletal: Denies Joint Pain or Muscle Pain
Physical Exam
-
General: Well Developed, Well Nourished, No Apparent Distress and Comfortable
HEENT: Normocephalic and Atraumatic
Respiratory: Clear to Auscultation
Cardiac: Regular Rhythm and S1/S2
Neuro: Awake (Initially sleeping, awoke easily) and Alert
Psych: Calm
[2025-03-10 07:13] LABS: Blood Urea Nitrogen 12 mg/dl (7-17); Calcium 8.5 mg/dl (8.4-10.2); Carbon Dioxide 26 mmol/L (22-30); Chloride 109 mmol/L (98-107); Estimated Creatinine Clearance 49 ml/min; Glucose 102 mg/dl (70-99); Potassium 3.2 mmol/L (3.5-5.1); Sodium 138 mmol/L (135-145); eGFR > 60.00
[2025-03-10] MEDS: ZITHROMAX 500 MG PO (07:36)
[2025-03-10] MEDS: CARAFATE 1 GRAM PO ×2 (07:36→10:57)
[2025-03-10] MEDS: PROTONIX 40 MG PO (07:36)
[2025-03-10] MEDS: KEFLEX 500 MG PO (07:36)
[2025-03-10] MEDS: ELIQUIS 2.5 MG PO (07:36)
[2025-03-10] MEDS: TOPROL XL 25 MG PO (08:39)
[2025-03-10 10:24] VITALS: BP 109/66; PULSE 112; PULSE 94; O2SAT 94
[2025-03-10] MEDS: MIRALAX 17 GRAMS PO (10:57)
[2025-03-10] MEDS: SENOKOT 8.6 MG PO (10:57)
--- NOTE | 2025-03-10 11:43 | W.DCSUMMARY ---
Documented by User: Noemy CoradoDO nory, Resident 03/10/25 11:45
Discharge Summary
Discharge Data
Date of Admission: 03/07/25
Date of Discharge: 03/10/25
-
Pending Results: No
Hospital Course
This is an 85 y/o female with a pmhx of dementia, hyperlipidemia, paroxysmal atrial fibrillation on Eliquis who presented to the ED from [facility] on 03/07/2025 with tachycardia and vomiting. Per history from her nursing staff, patient was in
normal state of health that morning until she had an unwitnessed fall at 7:10AM. She did not complain of any injuries but was noted to be tachycardic. Throughout the day her heart rate remained between 100-120 and she was also more lethargic than
usual. She had an episode of non bloody vomiting at 5:30PM, and lab work done after the fall revealed a WBC of 20.1.
Chest X-ray in the ED showed right upper and lower lobe opacities likely repressing multifocal pneumonia, and a 7mm nodular opacity in the left upper lobe that should be followed up on. CT head did not reveal any evidence of acute intracranial
abnormalities. She was started on IV ceftriaxone and azithromycin.
She transitioned to oral Keflex 500mg TID on 03/08/2025. She continued to improve with her WBC decreasing to 15.3 on 03/09/2025, and 8.3 on 03/10/2025. She was found to be medically stable and discharged back to [facility] on 03/10/2025 with
instructions to follow up with her PCP in less than one week, and to continue taking Keflex 500mg BID for four days.
Discharge Plan
-
Patient Disposition: Assisted/SNF
Discharge Diagnosis/Procedures: Sepsis likely secondary to Pneumonia, Lung Nodule, Status post fall, Dementia, Paroxysmal Atrial Fibrillation, Gastroesophageal Reflux Disease, Constipation
Diet: No restrictions
Activity: No restrictions and As tolerated
Driving Restrictions: As prior to admission
Bathing Restrictions: None
Referrals:
UNKNOWN - PT DOES,NOT KNOW [Family Provider]
Additional Discharge Medication Instructions: We are discharging you with a prescription for an antibiotic. It is important that you take this medication twice a day for four days total, completing the entire course. You should also follow up with
your PCP in less than one week.
Prescriptions:
New
cephalexin 500 mg capsule
500 mg PO BID 4 Days Qty: 8 0RF
Continued
latanoprost [Xalatan] 0.005 % Drops
1 drp BOTH EYES HS
acetaminophen 325 mg Tablet
650 mg PO Q4H PRN (Reason: pain, fever >100.4 )
sucralfate 1 gram Tablet
1 g PO ACHS
ondansetron HCl 4 mg Tablet
4 mg PO Q6H PRN (Reason: nausea/vomiting)
bisacodyl 10 mg Suppository
10 mg NM Q72H PRN (Reason: 3 days when no BM and MOM and/or lactulose ineffec)
pantoprazole [Protonix] 40 mg Tablet,Delayed Release (Dr/Ec)
40 mg PO BID
dorzolamide-timolol 22.3-6.8 mg/mL Drops
1 drp BOTH EYES BID
metoprolol succinate [Toprol XL] 25 mg Tablet Extended Release 24 Hr
25 mg PO DAILY
polyethylene glycol 3350 [Miralax] 17 gram/dose Powder
17 g PO DAILY
fluticasone propionate 50 mcg/actuation [place],Suspension
1 spray INTRANASAL BID
Eliquis 2.5 mg Tablet
2.5 mg PO Q12H
magnesium hydroxide [Milk of Magnesia] 400 mg/5 mL Suspension
30 ml PO HS PRN (Reason: constipation)
cyanocobalamin (vitamin B-12) 1,000 mcg/mL Solution
1,000 mcg IM QMONTH
Patient Comments:
every of the month
Rx Instructions:
04/06/2023, patient takes of the month
alum-mag hydroxide-simeth 200-200-20 mg/5 mL Suspension
30 ml PO Q4H PRN (Reason: colitis)
diclofenac sodium 1 % Gel
4 g TOPICAL DAILY
potassium chloride [Klor-Con M20] 20 mEq tablet,ER particles/crystals
20 meq PO DAILY
Discharge Orders:
Discharge Patient (As Directed); Ordered 03/10/25
Ordered By: Noemy Gu
Discharge Date and Time
Discharge Date/Time: 03/10/25 16:19
Print Language: [place] ISLAND[place]

Documented by User: Efren Bob DO 03/11/25 17:04
Discharge Summary
Discharge Data
Date of Admission: 03/07/25
Date of Discharge: 03/10/25
Total time spent discharging patient (in min): 31
Discharge Plan
-
Patient Disposition: Assisted/SNF
Discharge Diagnosis/Procedures: Sepsis likely secondary to Pneumonia, Lung Nodule, Status post fall, Dementia, Paroxysmal Atrial Fibrillation, Gastroesophageal Reflux Disease, Constipation
Diet: No restrictions
Activity: No restrictions and As tolerated
Driving Restrictions: As prior to admission
Bathing Restrictions: None
Referrals:
UNKNOWN - PT DOES,NOT KNOW [Family Provider]
Additional Discharge Medication Instructions: We are discharging you with a prescription for an antibiotic. It is important that you take this medication twice a day for four days total, completing the entire course. You should also follow up with
your PCP in less than one week.
Prescriptions:
New
cephalexin 500 mg capsule
500 mg PO BID 4 Days Qty: 8 0RF
Continued
latanoprost [Xalatan] 0.005 % Drops
1 drp BOTH EYES HS
acetaminophen 325 mg Tablet
650 mg PO Q4H PRN (Reason: pain, fever >100.4 )
sucralfate 1 gram Tablet
1 g PO ACHS
ondansetron HCl 4 mg Tablet
4 mg PO Q6H PRN (Reason: nausea/vomiting)
bisacodyl 10 mg Suppository
10 mg NM Q72H PRN (Reason: 3 days when no BM and MOM and/or lactulose ineffec)
pantoprazole [Protonix] 40 mg Tablet,Delayed Release (Dr/Ec)
40 mg PO BID
dorzolamide-timolol 22.3-6.8 mg/mL Drops
1 drp BOTH EYES BID
metoprolol succinate [Toprol XL] 25 mg Tablet Extended Release 24 Hr
25 mg PO DAILY
polyethylene glycol 3350 [Miralax] 17 gram/dose Powder
17 g PO DAILY
fluticasone propionate 50 mcg/actuation [place],Suspension
1 spray INTRANASAL BID
Eliquis 2.5 mg Tablet
2.5 mg PO Q12H
magnesium hydroxide [Milk of Magnesia] 400 mg/5 mL Suspension
30 ml PO HS PRN (Reason: constipation)
cyanocobalamin (vitamin B-12) 1,000 mcg/mL Solution
1,000 mcg IM QMONTH
Patient Comments:
every third of the month
Rx Instructions:
04/06/2023, patient takes of the month
alum-mag hydroxide-simeth 200-200-20 mg/5 mL Suspension
30 ml PO Q4H PRN (Reason: colitis)
diclofenac sodium 1 % Gel
4 g TOPICAL DAILY
potassium chloride [Klor-Con M20] 20 mEq tablet,ER particles/crystals
20 meq PO DAILY
Discharge Orders:
Discharge Patient (As Directed); Ordered 03/10/25
Ordered By: Noemy Gu
Discharge Date and Time
Discharge Date/Time: 03/10/25 16:19
Print Language: [place] ISLAND[place]
--- NOTE | 2025-03-10 12:31 | CM ---
Addendum entered by Niki Burciaga 03/10/25 12:46:
[facility]
Report [phone]

Original Note:
Pt cleared for discharge back to [facility]. CM spoke with pt's daughter, Jodi, who is agreeable to w/c van transport and cost of $95. Request for w/c van submitted.
Plan: Pt to return to [facility] today via w/c van. Daughter will go to [facility] later today.
[2025-03-10 16:04] VITALS: BP 98/60
== END 2025-03-10 16:19 | DRG 871 ==
LOC: 4 WEST ACU 21:41
PROVIDERS: ADMITTING PHYSICIAN Internal Medicine; ATTENDING PHYSICIAN Internal Medicine; EMERGENCY PHYSICIAN Emergency Medicine
DX: A41.9 Sepsis, unspecified organism (principal); J18.9 Pneumonia, unspecified organism; Z11.52 Encounter for screening for COVID-19; F03.A0 Unspecified dementia, mild, without behavioral disturbance, psychotic disturbance, mood disturbance, and anxiety; I48.0 Paroxysmal atrial fibrillation; K21.9 Gastro-esophageal reflux disease without esophagitis; R91.1 Solitary pulmonary nodule; K59.00 Constipation, unspecified; Z79.01 Long term (current) use of anticoagulants; E78.5 Hyperlipidemia, unspecified; I10 Essential (primary) hypertension; Z79.899 Other long term (current) drug therapy
CPT/HCPCS: 70450; 71045; 80048; 80053; 81003; 81015; 83605; 83690; 84484; 85025; 85027; 87040; 87502; 87811; 93005; 96365; 96375; 97116; 97162; 97166; 97530; 99285

== ENCOUNTER → 2025-03-17 10:15 | Outpatient (REF) | payer OTHER, MEDICARE, SELFPAY ==
[2025-03-17 10:42] LABS: Hematocrit 38.8 % (37.0-47.0); Hemoglobin 12.3 g/dL (12.0-16.0); Mean Corp Hgb Conc. 31.7 g/dL (33.0-37.0); Mean Corpuscular Volume 94.4 fL (81.0-99.0); Nucleated Red Blood Cells % 0 %; Platelet Count 312 10^3/uL (130-400); Red Cell Dist. Width 13.6 % (11.5-14.5)
[2025-03-17 10:52] LABS: ALT (SGPT) 12 U/L (0-35); AST (SGOT) 19 U/L (14-36); Albumin 3.1 g/dl (3.5-5.0); Alkaline Phosphatase 80 U/L (38-126); Blood Urea Nitrogen 16 mg/dl (7-17); Calcium 9.1 mg/dl (8.4-10.2); Carbon Dioxide 28 mmol/L (22-30); Chloride 107 mmol/L (98-107); Glucose 86 mg/dl (70-99); Iron 49 ug/dl (37-170); Magnesium 2.2 mg/dl (1.6-2.3); Potassium 4.5 mmol/L (3.5-5.1); Sodium 139 mmol/L (135-145); Total Protein 6.4 g/dl (6.3-8.2); eGFR > 60.00
[2025-03-17 11:01] LABS: Total Iron Binding Capacity 213 ug/dl (265-497)
[2025-03-17 11:26] LABS: Ferritin 99.3 ng/ml (11.1-264.0)
== END ==
LOC: OLABN 10:15
PROVIDERS: ATTENDING PHYSICIAN Student in an Organized Health Care Education/Training Program
DX: E43 Unspecified severe protein-calorie malnutrition (principal); I10 Essential (primary) hypertension; Z87.19 Personal history of other diseases of the digestive system; K59.00 Constipation, unspecified
CPT/HCPCS: 36415; 80053; 82728; 83540; 83550; 83735; 85025

== ENCOUNTER → 2025-08-25 10:00 | Outpatient (REF) | payer MEDICARE, OTHER, SELFPAY ==
[2025-08-25 10:41] LABS: Hematocrit 39.8 % (37.0-47.0); Hemoglobin 12.9 g/dL (12.0-16.0); Mean Corp Hgb Conc. 32.4 g/dL (33.0-37.0); Mean Corpuscular Volume 90.5 fL (81.0-99.0); Platelet Count 201 10^3/uL (130-400); Red Cell Dist. Width 14.1 % (11.5-14.5)
== END ==
LOC: OLABN 10:00
PROVIDERS: ATTENDING PHYSICIAN Student in an Organized Health Care Education/Training Program
DX: I10 Essential (primary) hypertension (principal); E87.6 Hypokalemia
CPT/HCPCS: 36415; 85027